=== PATIENT | female | born 1980 | race Caucasian/White ===

== ENCOUNTER 2023-03-25 11:18 | Outpatient (CLI) | payer OTHER ==
--- NOTE | 2023-03-25 14:14 | XRAY Report ---
PROCEDURE: Lumbar Spine 2 View INDICATIONS: BACK PAIN TECHNIQUE: 3 views of the lumbar spine were acquired. COMPARISON: None. FINDINGS: Bones: 5 [id number] vertebrae are present. Mild straightening of the normal lumbar lordosis. No spondylolisthesis. Mild disc height loss at L5-S1. Mild facet arthropathy at L4-L5 and L5-S1. No emani tebral body compression fractures. No suspicious bony lesions. Soft tissues: Overlying bowel gas pattern is normal. No suspicious soft tissue calcifications. IMPRESSION: Mild degenerative changes at L5-S1. Reviewed by: Raheem Au MD on 03/25/2023 2:13 PM PST Approved by: Raheem Au MD on 03/25/2023 2:13 PM PST Station ID: [id number]
[2023-03-25 15:16] LABS: BASOPHILS # (AUTO) 0.1 10^3/uL (0.0-0.1); BASOPHILS % (AUTO) 0.9 %; EOSINOPHILS # (AUTO) 0.2 10^3/uL (0.0-0.7); EOSINOPHILS % (AUTO) 3.1 %; HCT - HEMATOCRIT 38.9 % (37.0-47.0); HGB - HEMOGLOBIN 12.4 g/dL (12.0-16.0); LYMPHOCYTES # (AUTO) 2.7 10^3/uL (1.5-3.5); LYMPHOCYTES % (AUTO) 39.9 %; MEAN CORPUSCULAR HGB CONC 31.9 g/dL (32.0-36.0); MEAN CORPUSCULAR VOLUME 97.3 fL (81.0-99.0); MONOCYTES # (AUTO) 0.5 10^3/uL (0.0-1.0); NEUTROPHILS # (AUTO) 3.2 10^3/uL (1.5-6.6); NEUTROPHILS % (AUTO) 47.8 %; PLT - PLATELET COUNT 305 10^3/uL (130-450); RED CELL DISTRIBUTION WIDTH 12.8 % (12.0-15.0); WHITE BLOOD COUNT 6.7 x10^3/uL (4.8-10.8)
[2023-03-25 15:39] LABS: THYROID STIMULATING HORMONE 1.41 uIU/mL (0.34-5.60)
[2023-03-25 16:38] LABS: ALBUMIN 4.7 g/dL (3.2-5.5); ALBUMIN/GLOBULIN RATIO 1.6 (1.0-2.2); BILIRUBIN,TOTAL 0.5 mg/dL (0.2-1.0); CALCIUM 9.6 mg/dL (8.5-10.3); CREATININE 0.6 mg/dL (0.6-1.3); POTASSIUM 3.8 mmol/L (3.5-4.5); TOTAL PROTEIN 7.7 g/dL (6.4-8.9)
== END 2023-03-25 11:19 | disposition home or self-care (01) ==
LOC: DI.S 11:18
PROVIDERS: ATTEND Physician Assistant Medical
DX: M47.816 Spondylosis without myelopathy or radiculopathy, lumbar region (principal); Z13.9 Encounter for screening, unspecified
CPT/HCPCS: 36415; 80053; 84443; 85025

== ENCOUNTER 2023-04-13 13:09 | Outpatient (CLI) | payer OTHER ==
--- NOTE | 2023-04-13 14:47 | Ultrasound Report ---
PROCEDURE: Pelvic w/Transvaginal INDICATIONS: DYSMENORRHEA TECHNIQUE: Real-time scanning was performed of the pelvic organs, with image documentation. Additional endovagi nal scanning was necessary due to incomplete visualization of the adnexal and endometrial structures by transabdominal scanning. COMPARISON: None. FINDINGS: Uterus: Uterus is retroverted and normal in size at 9.8 x 6.8 x 5.8 cm. The myometrium is heterogen eous. The endometrium measures 5.6 mm in combined thickness. There is a right posterior subserosal fibroid measuring 5.9 x 5.2 x 6.4 cm. Ovaries: The right ovary measures 3.4 x 2.0 x 1.3 cm, with a calculated ovarian volume of 4.8 cc. T he left ovary measures 2.9 x 1.9 x 2.1 cm, with a calculated ovarian volume of 6.0 cc. The ovaries h ave a normal sonographic appearance. Less than 12 follicles can be seen in each ovary. No adnexal m asses are seen. No cystic lesions measuring greater than 3 cm. Other: No pathologic free abdominal or pelvic fluid. Small free fluid within the right adnexa. IMPRESSION: 1.Endometrium is normal in thickness. 2.Right posterior subserosal fibroid measuring 6.4 cm. 3.Ovaries are normal in appearance. Reviewed by: Raheem Au MD on 04/13/2023 2:45 PM PST Approved by: Raheem Au MD on 04/13/2023 2:45 PM PST Station ID: [id number]
== END 2023-04-13 13:10 | disposition home or self-care (01) ==
LOC: DI 13:09
PROVIDERS: ATTEND Physician Assistant Medical
DX: N94.6 Dysmenorrhea, unspecified (principal); D25.2 Subserosal leiomyoma of uterus

== ENCOUNTER 2023-04-13 13:10 | Outpatient (CLI) | payer OTHER ==
--- NOTE | 2023-04-14 10:42 | Mammography Report ---
BILATERAL DIGITAL SCREENING MAMMOGRAM 3D/2D WITH EXAGGERATED CC: 04/13/2023 CLINICAL: Routine screening. No prior exams were available for comparison. Both breasts are heterogeneously dense, which may obscure small masses (category c / 51-75% glandular tissue). No significant masses, calcifications, or other findings are seen in either breast. IMPRESSION: NEGATIVE There is no mammographic evidence of malignancy. A 1 year screening mammogram is recommended. Based on the Tyrer Cuzick model (a risk assessment model) the patients lifetime risk is 14.4% and he r 10 year risk is 2.0%. According to the ACR, ACS, and NCCN guidelines, an annual breast MRI exam janet ng with mammogram is recommended if the patients lifetime risk is 20% or greater. This exam was interpreted at Station ID: [id number]. NOTE: For mammograms, a report in lay terms will be sent to the patient. Approximately 15% of breast malignancies will not be visualized mammographically. In the management of a palpable breast mass, a negative mammogram must not discourage biopsy of a clinically suspicious lesion. Electronically Signed By: Abigial holland/hai:04/13/2023 16:54:42 letter sent: No_Letter ACR BI-RADS Category 1: Negative 3341F PARENCHYMAL PATTERN: (D) - The breast(s) demonstrate(s) heterogeneously dense fibroglandular mo hodge. BI-RADS CATEGORY: (1) - 1 Mammogram [id number] 1 year screening LATERALITY: (B)
== END 2023-04-13 13:11 | disposition home or self-care (01) ==
LOC: DI 13:10
PROVIDERS: ATTEND Physician Assistant Medical
DX: Z12.31 Encounter for screening mammogram for malignant neoplasm of breast (principal); R92.333 Mammographic heterogeneous density, bilateral breasts

== ENCOUNTER 2023-06-29 13:50 | Outpatient (CLI) | payer OTHER ==
--- NOTE | 2023-06-29 16:34 | Ultrasound Report ---
PROCEDURE: Duplex Ext Veins Left INDICATIONS: SWELLING OF L ARM TECHNIQUE: Real-time imaging, as well as color and pulse Doppler interrogation, were performed of the left upper extremity deep veins from the internal jugular vein to cephalic/basilic veins. COMPARISON: None. FINDINGS: The deep veins are normally compressible, and free of intraluminal thrombus. Color and pu lse Doppler demonstrate normal phasic intraluminal flow. There is normal augmentation response to di stal compression maneuver. No visualized superficial venous thrombosis. Ill-defined echogenicity in the left arm palpable site of injury measuring 1.3 x 1.2 x 0.6 cm. No dis crete fluid collection. IMPRESSION: 1.No deep venous thrombosis of the visualized left upper extremity. No visualized superficial venous thrombosis. 2.Ill-defined echogenicity in the left arm palpable site of injury measuring 1.3 x 1.2 x 0.6 cm may r epresent inflammation. No discrete fluid collection. Reviewed by: Sonido Alcazar MD on 06/29/2023 4:32 PM PDT Approved by: Sonido Alcazar MD on 06/29/2023 4:32 PM PDT Station ID: [id number]
== END 2023-06-29 13:51 | disposition home or self-care (01) ==
LOC: DI 13:50
PROVIDERS: ATTEND Registered Nurse
DX: R22.32 Localized swelling, mass and lump, left upper limb (principal)